=== PATIENT | male | born 1990 | race Caucasian/White ===

== ENCOUNTER 2020-02-06 13:14 | Emergency (ER) | payer OTHER ==
[2020-02-06 13:44] VITALS: BP 126/67
--- NOTE | 2020-02-06 14:00 | NUR ---
PT AMBULATORY TO E FROM TRIAGE WITH STEADY GAIT. NAD NOTED. RESP REGULAR AND UNLABORED. PT WEARING MASK FOR COUGH. STIVEN WOOD AT BEDSIDE FOR EVALUATION. ISOLATION PRECAUTIONS IN PLACE PER STIVEN WOOD. 29 Y/O M PRESENTS STATING "WHOLE FAMILY IS SICK, EVERYONE IS COUGHING AND HAVING RUNNY NOSES, CONGESTED." DENIES CP, SOB, N/V/D, FEVERS, CHILLS OR ANY RECENT TRAVEL. CALL LIGHT IN REACH. FALL PRECAUTIONS IN PLACE. SIDE RAILS UPX2.
--- NOTE | 2020-02-06 14:24 | NUR ---
STIVEN WOOD AT BEDSIDE FOR EVALUATION
== END 2020-02-06 15:11 | disposition home or self-care (01) ==
LOC: ED 15:05
DX: B34.9 Viral infection, unspecified (principal); F17.200 Nicotine dependence, unspecified, uncomplicated
CPT/HCPCS: 71046; 99283

== ENCOUNTER 2020-02-16 12:33 | Emergency (ER) | payer OTHER ==
[~2020-02-16] VITALS: Ht 175.3 cm; Wt 73.0 kg
--- NOTE | 2020-02-16 12:47 | NUR ---
pt ambulated to room with a steady gait. pt in with C/O possibly "severing tendon in my finger."
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
--- NOTE | 2020-02-16 13:32 | NUR ---
Provider at bedside.
--- NOTE | 2020-02-16 13:48 | NUR ---
Lab at bedside. radar technician at bedside cleaning wound. Sitter remains outside of room.
[2020-02-16 14:08] LABS: BASOPHILS # (AUTO) 0.03 x10^3/uL (0-0.1); BASOPHILS % (AUTO) 0 % (0-1); EOSINOPHILS % (AUTO) 2 % (1-7); LYMPHOCYTES # (AUTO) 3.03 x10^3/uL (1-3.4); LYMPHOCYTES % (AUTO) 46 % (22-44); MD NO; MEAN CORPUSCULAR HEMOGLOBIN 29.9 pg (27.5-34.5); MEAN CORPUSCULAR HGB CONC 33.5 g/dL (33.2-36.2); MEAN PLATELET VOLUME 7.2 fL (7.4-10.4); MONOCYTES # (AUTO) 0.58 x10^3/uL (0.2-0.8); MONOCYTES % (AUTO) 9 % (2-9); NEUTROPHILS % (AUTO) 44 % (42-75); PLATELET COUNT 354 x10^3/uL (130-400)
[2020-02-16 14:18] LABS: ALBUMIN 4.2 g/dL (3.4-5.0); ANION GAP 5 mmol/L (5-15); CALCIUM 8.8 mg/dL (8.5-10.1); CHLORIDE 109 mmol/L (98-107); CREATININE 0.91 mg/dL (0.7-1.3); SALICYLATE LEVEL 2.8 mg/dL (2.8-20.0)
--- NOTE | 2020-02-16 14:19 | NUR ---
Provider at bedside.
[2020-02-16] MEDS ORDERED: NEOSPORIN OINT. PKT 1 PACKET ONE (14:29)
--- NOTE | 2020-02-16 14:46 | NUR ---
Carolyne REGULATORY TECHNICIAN at bedside evulating pt.
--- NOTE | 2020-02-16 15:14 | NUR ---
MEAL TRAY PROVIDED TO PT. PT REQUESTING BENADRYL FOR RASH D/T TAPE/LAB DRAW
[2020-02-16] MEDS ORDERED: DIPHENHYDRAMINE 50 MG CAPSULE ONE (15:15)
--- NOTE | 2020-02-16 15:20 | NUR ---
Bendryl 50mg PO give per Emar. Medication not scanning. 5 rights verified.
--- NOTE | 2020-02-16 16:24 | NUR ---
Personal belongings returned to pt, 2 bags. pt currently getting dressed.
[2020-02-16 16:30] VITALS: BP 132/71
--- NOTE | 2020-02-16 16:31 | NUR ---
Patient given discharge instructions and they have confirmed that they understand the instructions. Patient ambulatory with steady gait. pt left ER in no distress
== END 2020-02-16 16:32 | disposition home or self-care (01) ==
LOC: ED 13:02
DX: F33.9 Major depressive disorder, recurrent, unspecified (principal); F14.10 Cocaine abuse, uncomplicated; F12.10 Cannabis abuse, uncomplicated; F10.10 Alcohol abuse, uncomplicated; F15.10 Other stimulant abuse, uncomplicated; Y90.0 Blood alcohol level of less than 20 mg/100 ml
CPT/HCPCS: 36415; 80048; 80307; 82040; 85025; 99284

== ENCOUNTER 2020-05-23 07:05 | Emergency (ER) | payer MEDICAID ==
[~2020-05-23] VITALS: Ht 175.3 cm; Wt 74.2 kg
--- NOTE | 2020-05-23 07:30 | NUR ---
THIS IS A 29 YO M W/ C/O "CAN'T FEEL MY LUNGS", SOB, CP SINCE IV METH USE LAST NIGHT. PT LUNG SOUNDS DIMINISHED ON LEFT SIDE. PT TACHYCARDIC, OTHER VS WDL. PT RESTING ON GURNEY W/ CALL LIGHT IN REACH AND SIDE RAILS UPX2. CONNECTED TO ALL MONITORING. AT BEDSIDE FOR ED EVAL.
--- NOTE | 2020-05-23 07:47 | NUR ---
PIV STARTED LABS DRAWN AND SENT TO LAB.
[2020-05-23 07:54] LABS: BASOPHILS % (AUTO) 0 % (0-1); EOSINOPHILS # (AUTO) 0.03 x10^3/uL (0-0.4); EOSINOPHILS % (AUTO) 0 % (1-7); LYMPHOCYTES # (AUTO) 0.58 x10^3/uL (1-3.4); LYMPHOCYTES % (AUTO) 5 % (22-44); MD NO; MEAN CORPUSCULAR HEMOGLOBIN 30.6 pg (27.5-34.5); MEAN CORPUSCULAR HGB CONC 33.9 g/dL (33.2-36.2); MEAN CORPUSCULAR VOLUME 90.3 fL (81-97); MEAN PLATELET VOLUME 6.9 fL (7.4-10.4); MONOCYTES # (AUTO) 0.02 x10^3/uL (0.2-0.8); MONOCYTES % (AUTO) 0 % (2-9); NEUTROPHILS % (AUTO) 94 % (42-75); PLATELET COUNT 279 x10^3/uL (130-400); RED BLOOD COUNT 5.22 x10^6/uL (4.38-5.82); RED CELL DISTRIBUTION WIDTH 13.5 % (9.4-14.8)
[2020-05-23] MEDS ORDERED: HYDROmorphone 1 MG/ML, 1ML INJ IM ONE (08:00)
[2020-05-23 08:04] LABS: ALBUMIN 4.4 g/dL (3.4-5.0); ANION GAP 7 mmol/L (5-15); CHLORIDE 107 mmol/L (98-107); CREATININE 1.07 mg/dL (0.7-1.3)
[2020-05-23 08:08] LABS: TROPONIN I < 0.015 ng/mL (0.000-0.045)
[2020-05-23] MEDS ORDERED: HYDROmorphone 1 MG/ML, 1ML INJ ONE (08:09)
--- NOTE | 2020-05-23 08:17 | NUR ---
TELEPHONE CALL TO RADIOLOGY REGARDING DELAY IN IMAGE. THEY STATE WHEN THE TECH GETS BACK FROM ED THEY WILL TELL HIM TO "RESEND IT".
--- NOTE | 2020-05-23 08:30 | NUR ---
CXR MARKED COMPLETE AT 0805. NO IMAGE OR REPORT POPULATING IN [facility]. PER HE HAS ALSO SPOKEN W/ RADIOLOGY 3 TIMES NOW. STILL NO IMAGE AVAILABLE.
[2020-05-23] MEDS ORDERED: OMNIPAQUE 350 MG/ML, 100ML BOTTLE ONE (09:30)
--- NOTE | 2020-05-23 10:11 | NUR ---
PT IN RAD.
[2020-05-23 10:46] VITALS: BP 111/44
--- NOTE | 2020-05-23 10:46 | NUR ---
PT SLEEPING ON [employer] W/ CALL LIGHT IN REACH. CONNECTED TO ALL MONITORING. VSS, NADN. CHEST RISE AND FALL OBSERVED. AWAITING RESULTS.
--- NOTE | 2020-05-23 10:59 | NUR ---
Patient/Caregiver given discharge instructions and they have confirmed that they understand the instructions. Patient ambulatory with steady gait.
== END 2020-05-23 11:01 | disposition home or self-care (01) ==
LOC: ED 07:43
DX: R07.89 Other chest pain (principal); R06.02 Shortness of breath; R00.0 Tachycardia, unspecified; R94.31 Abnormal electrocardiogram [ECG] [EKG]; F17.200 Nicotine dependence, unspecified, uncomplicated
CPT/HCPCS: 36415; 71045; 71275; 80048; 82040; 84484; 85025; 85379; 93005; 96372; 99285; J1170; Q9967

== ENCOUNTER 2020-10-22 20:46 | Emergency (ER) | payer MEDICAID ==
[2020-10-22 20:52] VITALS: BP 129/73
--- NOTE | 2020-10-22 20:57 | NUR ---
RAW SILK GRADER: EKG DONE IN TRIAGE.
[2020-10-22 21:48] LABS: BASOPHILS % (AUTO) 1 % (0-1); EOSINOPHILS % (AUTO) 4 % (1-7); LYMPHOCYTES % (AUTO) 42 % (22-44); MEAN CORPUSCULAR HEMOGLOBIN 29.1 pg (27.5-34.5); MEAN CORPUSCULAR HGB CONC 33.4 g/dL (33.2-36.2); MEAN PLATELET VOLUME 7.1 fL (7.4-10.4); MONOCYTES % (AUTO) 9 % (2-9); NEUTROPHILS % (AUTO) 44 % (42-75); PLATELET COUNT 350 x10^3/uL (130-400); RED BLOOD COUNT 4.87 x10^6/uL (4.38-5.82); RED CELL DISTRIBUTION WIDTH 13.2 % (9.4-14.8)
[2020-10-22 21:56] LABS: ALBUMIN 3.6 g/dL (3.4-5.0); ANION GAP 8 mmol/L (5-15); CALCIUM 8.3 mg/dL (8.5-10.1); CHLORIDE 110 mmol/L (98-107); CREATININE 0.93 mg/dL (0.7-1.3)
[2020-10-22 21:57] LABS: MD NO
--- NOTE | 2020-10-22 22:01 | NUR ---
pt to room from lobby
[2020-10-22] MEDS ORDERED: LORazepam 1MG TABLET ONE (22:27)
--- NOTE | 2020-10-22 22:29 | NUR ---
PT MEDICATED PER EMAR. 5 RIGHTS ADDRESSED
[2020-10-22] MEDS ORDERED: LORazepam 1MG TABLET PO ONE (22:30)
--- NOTE | 2020-10-22 22:50 | NUR ---
Patient/Caregiver given discharge instructions and they have confirmed that they understand the instructions. Patient ambulatory with steady gait.
== END 2020-10-22 22:51 | disposition home or self-care (01) ==
LOC: ED 22:08
DX: F41.1 Generalized anxiety disorder (principal); F15.20 Other stimulant dependence, uncomplicated; R20.8 Other disturbances of skin sensation; I48.92 Unspecified atrial flutter
CPT/HCPCS: 36415; 80048; 82040; 85025; 93005; 99284

== ENCOUNTER 2020-12-07 11:52 | Inpatient (IN) | payer MEDICAID ==
[~2020-12-07] VITALS: Ht 175.3 cm; Wt 86.5 kg
[2020-12-07 12:15] LABS: BASOPHILS % (AUTO) 1 % (0-1); EOSINOPHILS % (AUTO) 3 % (1-7); LYMPHOCYTES % (AUTO) 28 % (22-44); MEAN CORPUSCULAR HEMOGLOBIN 29.6 pg (27.5-34.5); MEAN CORPUSCULAR HGB CONC 33.5 g/dL (33.2-36.2); MONOCYTES % (AUTO) 10 % (2-9); NEUTROPHILS % (AUTO) 59 % (42-75); PLATELET COUNT 281 x10^3/uL (130-400); RED CELL DISTRIBUTION WIDTH 14.4 % (9.4-14.8)
--- NOTE | 2020-12-07 12:19 | NUR ---
PT. ARRIVES BY [facility] A & O X 4 WITH A GCS OF 15 WITH C/O A SUICIDE ATTEMPT BY TAKING 4 BOTTLES OF SERTRALINE, 2 BOTTLES OF WELLBUTRIN, 2 BOTTLES OF HYDROXYZINE AND 1 BOTTLE PRAZOSIN. PT. REPORTS HIS MOTHER WITNESSED HIS ATTEMPT AND CALL EMS. PT. STATES HE HAS A PREVIOUS ATTEMPT WITH A HEROIN OD. PT. STATES HE USES HEROIN, METH, WEED AND DRINKS FREQUENTLY IN ADDITION TO SMOKING. PT. STATES "EVERYTHING IS GOING WRONG IN MY LIFE" BUT DOESN'T ELABORATE ON THE DETAILS. PT. WAS PLACED ON THE CP MONITOR AND A 12 LEAD EKG WAS DONE. PT. HAS AN IV IN PLACE. THE PT. IS CALM AND COOPERATIVE. HE PLACED ALL OF HIS BELONGINGS IN A BAG WHICH WAS LABELED AND SECURED IN THE CABINET. PT.'S SI SAFETY MEASURES ARE IN PLACE AND A SITTER IS OUTSIDE OF THE ROOM. THE RESIDENT IS AT THE BEDSIDE. PT.'S LUNGS ARE CTA THROUGHOUT. S1 S2 WAS NOTED WITHOUT MURMURS RUBS OR GALLOPS. HIS ABD. IS SOFT AND HE C/O CHRONIC ABD. PAIN. BS ARE + X 4 QUADS. PULSES ARE + 2 THROUGHOUT AND CAP REFILL IS BRISK. PT. IS ABLE TO SHIRLEY WNL. HE IS AMBULATORY WITH A STEADY GAIT. HE HAS NO S/S MUSCLE RIGITY AT THIS TIME. SIDERAILS ARE UP X 2 AND THE HOB IS ELEVATED. HE WAS GIVEN BLANKETS FOR WARMTH.
[2020-12-07 12:22] LABS: MD NO
[2020-12-07 12:23] LABS: CHLORIDE 109 mmol/L (98-107)
--- NOTE | 2020-12-07 12:29 | NUR ---
LABS WERE DRAWN AND SENT.
[2020-12-07 12:41] LABS: ALANINE AMINOTRANSFERASE 29 U/L (12-78); ALBUMIN 3.4 g/dL (3.4-5.0); ALKALINE PHOSPHATASE 75 U/L (45-117); ANION GAP 6 mmol/L (5-15); BILIRUBIN,TOTAL 0.2 mg/dL (0.2-1.0); CALCIUM 8.7 mg/dL (8.5-10.1); CREATININE 0.85 mg/dL (0.7-1.3); TOTAL PROTEIN 6.4 g/dL (6.4-8.2)
[2020-12-07 12:42] LABS: SALICYLATE LEVEL < 1.7 mg/dL (2.8-20.0)
--- NOTE | 2020-12-07 12:54 | NUR ---
RONALDO SAUL AT THE BEDSIDE INTERVIEWING THE PT.
--- NOTE | 2020-12-07 13:03 | NUR ---
PT. REMAINS MONITORED WITH STABLE VSS. LEGAL 2000 ON THE PT.'S CHART.
--- NOTE | 2020-12-07 13:44 | NUR ---
PT. IS RESTING AT THIS TIME.
--- NOTE | 2020-12-07 14:37 | NUR ---
PT. REMAINS WITH 1 TO 1 MONITORING. SITTER IS OUTSIDE HIS ROOM. CP MONITOR IS IN PLACE AND THE PT. IS RESTING WITHOUT CONCERNS.
[2020-12-07] MEDS ORDERED: PRAZ2CAP2 PO (14:45)
[2020-12-07] MEDS ORDERED: SERT100T32 PO (14:45)
[2020-12-07] MEDS ORDERED: BUPR150T7 PO (14:45)
[2020-12-07] MEDS ORDERED: HYDR50TA99 PO (14:45)
--- NOTE | 2020-12-07 14:54 | NUR ---
SBAR HAND-OFF REPORT RECEIVED FROM NAREN JENNINGS. ASSUMING CARE OF PATIENT.
--- NOTE | 2020-12-07 16:03 | NUR ---
PT SLEEPING AND IS ON THE CARDIAC AND CONTINUOUS SPO2 MONITORS. VS STABLE.
--- NOTE | 2020-12-07 17:35 | NUR ---
MOTHER, LEANDRO, , WOULD LIKE TO BE UPDATED ON PATIENT'S PLAN OF CARE IF PATIENT AGREES.
[2020-12-07 17:38] LABS: ANION GAP 4 mmol/L (5-15); CALCIUM 8.5 mg/dL (8.5-10.1); CHLORIDE 110 mmol/L (98-107); CREATININE 0.75 mg/dL (0.7-1.3)
[2020-12-07 17:39] LABS: SALICYLATE LEVEL < 1.7 mg/dL (2.8-20.0)
--- NOTE | 2020-12-07 17:45 | NUR ---
VS UPDATED AND WNL. PT RESTING. SITTER AT BEDSIDE.
[2020-12-07] MEDS ORDERED: LORazepam 2 MG/ML, 1ML ONE ×2 (18:23→20:38)
[2020-12-07] MEDS ORDERED: LORazepam 2 MG/ML, 1ML IVPush ONE ×2 (18:30→21:00)
--- NOTE | 2020-12-07 18:30 | NUR ---
PT FOUND TO BE SEIZING BY ED RN, JACK. THIS RN PULLED AND ADMINISTERED 1 MG ATIVAN PER VERBAL ORDER BY ED MD THOMPSON. REMAINING 1 MG ATIVAN HANDED OVER TO PT'S PRIMARY RN, GLADIS.
--- NOTE | 2020-12-07 18:40 | NUR ---
PT HAD SEIZURE WITNESSED BY SITTERS. PT GIVEN 1MG ATIVAN IVP WITH RESOLUTION OF SEIZURE, ORDERED BY DR. THOMPSON, WHO EVALUATED PATIENT AT THE BEDSIDE. CALLED DR. SNELL, WHO IS ON HIS WAY IN AND NOTIFIED HIM. DR. SNELL TO SEE PATIENT UPON ARRIVAL. LEVEL OF CARE CHANGED TO CRITICAL CARE, PER TELEPHONE ORDER OF DR. SNELL. NOTIFIED DR. SNELL THAT PT'S BP HAS BEEN MARGINAL, 500ML BOLUS OF NS ORDERED.
--- NOTE | 2020-12-07 18:45 | NUR ---
PT MOVED FROM 4 T TRAUMA 3. IV BOLUS STARTED ORDERED. PT POSTICTAL AT THIS TIME, EYES CLOSED. SEIZURE PADS IN PLACE
[2020-12-07] MEDS ORDERED: SODIUM CHLORIDE 0.9%, 500ML IVBOLUS ONE (19:00)
--- NOTE | 2020-12-07 19:04 | NUR ---
ASSUMED CARE OF PATIENT. REPORT GIVEN FROM NAREN MEDELLIN. DR SNELL TO BEDSIDE. MD AWARE OF VS. PT DROWSY. PT IS ABLE TO ANSWER QUESTIONS. CARIDAC MONITOR ON. SINUS TACH NOTED. WILL CONTINUE TO MONITOR.
--- NOTE | 2020-12-07 19:15 | NUR ---
CALLED DR SNELL. PROVIDER AWARE OF VS.
--- NOTE | 2020-12-07 19:21 | NUR ---
SITTER AT BEDSIDE. ADDRESSING MACHINE OPERATOR ON. SINSU TACH NOTED. SEIZURE PRECAUTIONS IN PLACE. WILL CONTINUE TO MONITOR.
[2020-12-07] MEDS ORDERED: ONDANSETRON ODT 4 MG PO PRN (19:30)
[2020-12-07] MEDS ORDERED: morphine SULFATE 10 MG/ML, 1ML IVPush PRN (19:30)
[2020-12-07] MEDS ORDERED: LORazepam 2 MG/ML, 1ML IVPush PRN ×2 (19:30→23:30)
[2020-12-07] MEDS ORDERED: OXYcodone IR 5MG TABLET PO PRN (19:30)
[2020-12-07] MEDS ORDERED: SODIUM CHLORIDE 0.9% 1,000ML IVBOLUS ONE ×2 (19:30→20:00)
[2020-12-07] MEDS ORDERED: DOCUSATE 100 MG CAPSULE PO PRN (19:30)
[2020-12-07] MEDS ORDERED: PROMETHAZINE 25 MG/ML, 1ML IM PRN (19:30)
[2020-12-07] MEDS ORDERED: BISACODYL 10 MG SUPP PR PRN (19:30)
[2020-12-07] MEDS ORDERED: POLYETHYLENE GLYCOL 17 GM PACKET PO PRN (19:30)
[2020-12-07] MEDS ORDERED: hydrALAzine 20 MG/ML, 1ML IVPush PRN (19:30)
--- NOTE | 2020-12-07 19:32 | NUR ---
DR SNELL TO BEDSIDE. PROVIDER AWARE OF VS. MD WANTS 1000 ML BOLUS OF NS GIVEN A 3RD BOLUS. PT MORE ALERT BUT DROWSY. PT IS ABLE TO ANSWER QUESTIONS APPROPRIATELY. COLLEGE FOOTBALL COACH ON. SINUS TACH NOTED. WILL CONTINUE TO MONITOR.
[2020-12-07 19:44] LABS: ANION GAP 8 mmol/L (5-15); CALCIUM 8.3 mg/dL (8.5-10.1); CHLORIDE 111 mmol/L (98-107); CREATININE 0.87 mg/dL (0.7-1.3)
[2020-12-07 19:54] LABS: CREATINE KINASE, TOTAL 72 U/L (39-308); FREE T4 (FREE THYROXINE) 0.73 ng/dL (0.76-1.46)
[2020-12-07] MEDS ORDERED: NOREPINEPHRINE 8 MG in SODIUM CHLORIDE 0.9% 242 ML IV PRN (20:00)
--- NOTE | 2020-12-07 20:02 | NUR ---
DR THOMPSON AWARE OF VS.
--- NOTE | 2020-12-07 20:05 | NUR ---
DR SNELL CALLED. AWARE OF VS. WANTS LEVO STARTED. PT HAS VERBALLY CONSENTED TO CENTRAL LINE. PT IS TOO WEAK TO SIGN. DR THOMPSON TO PLACE CENTRAL. DR SNELL WANTS LEVO STARTED IN PERIPHERAL IV UNTIL CENTRAL LINE IS IN.
--- NOTE | 2020-12-07 20:40 | NUR ---
CENTERAL LINE DONE BY DR THOMPSON. PT STARTED HAVING A SEIZURE. DR MCKEON AT BEDSIDE. 1 MG OF ATIVAN GIVEN.
[2020-12-07] MEDS: LORazepam 2 MG/ML, 1ML IVPush PRN ×2 (20:41→22:46)
--- NOTE | 2020-12-07 20:45 | NUR ---
CENTRAL LINE OKAYED TO USE BY DR THOMPSON. XRAY DONE
[2020-12-07] MEDS: D5%-0.45NACL+KCL 20MEQ 1,000 ML IV SCH (20:48)
--- NOTE | 2020-12-07 21:05 | NUR ---
REPORT CALLED INTO [facility] RN
[2020-12-07] MEDS ORDERED: LEVETIRACETAM 1,000 MG in SODIUM CHLORIDE 0.9% 100 ML IV ONE (23:30)
[2020-12-08 00:21] LABS: MICROSCOPIC INDICATED
[2020-12-08 00:22] LABS: AMPHETAMINE SCREEN, URINE Positive (Negative); BARBITURATE SCREEN, URINE Negative (Negative); BENZODIAZEPINE SCREEN, URINE Positive (Negative); CANNABINOID SCREEN, URINE Positive (Negative); COCAINE SCREEN, URINE Negative (Negative); METHADONE SCREEN, URINE Negative (Negative); OPIATE SCREEN, URINE Negative (Negative)
[2020-12-08] MEDS ORDERED: SODIUM CHLORIDE 0.9% 1,000ML IVBOLUS ONE (00:30)
[2020-12-08] MEDS ORDERED: LORazepam 2 MG/ML, 1ML IVPush ONE (00:30)
[2020-12-08] MEDS ORDERED: LORazepam 2 MG/ML, 1ML IVPush PRN (01:00)
[2020-12-08] MEDS ORDERED: OMNIPAQUE 350 MG/ML, 100ML BOTTLE ONE (02:06)
[2020-12-08] MEDS: NOREPINEPHRINE 8 MG in SODIUM CHLORIDE 0.9% 242 ML IV PRN ×3 (03:17→16:56)
[2020-12-08] MEDS: D5%-0.45NACL+KCL 20MEQ 1,000 ML IV SCH (03:17)
[2020-12-08] MEDS: ONDANSETRON 2MG/ML, 2ML IVPush PRN (04:29)
[2020-12-08 05:27] LABS: CHLORIDE 114 mmol/L (98-107)
[2020-12-08 05:29] LABS: BASOPHILS % (AUTO) 0 % (0-1); EOSINOPHILS % (AUTO) 0 % (1-7); LYMPHOCYTES % (AUTO) 4 % (22-44); MEAN CORPUSCULAR HGB CONC 33.1 g/dL (33.2-36.2); MEAN PLATELET VOLUME 7.2 fL (7.4-10.4); MONOCYTES % (AUTO) 6 % (2-9); NEUTROPHILS % (AUTO) 89 % (42-75); PLATELET COUNT 244 x10^3/uL (130-400); RED BLOOD COUNT 4.13 x10^6/uL (4.38-5.82); RED CELL DISTRIBUTION WIDTH 14.1 % (9.4-14.8)
[2020-12-08 05:30] LABS: MD NO
[2020-12-08 05:37] LABS: ALANINE AMINOTRANSFERASE 28 U/L (12-78); ALBUMIN 3.1 g/dL (3.4-5.0); ALKALINE PHOSPHATASE 67 U/L (45-117); ANION GAP 4 mmol/L (5-15); BILIRUBIN,TOTAL 0.4 mg/dL (0.2-1.0); CALCIUM 7.4 mg/dL (8.5-10.1); CHOL/HDL RATIO 2.1; CHOLESTEROL, TOTAL 89 mg/dL (140-239); CREATININE 1.13 mg/dL (0.7-1.3); HDL CHOL % 48 % (26-37); HDL CHOLESTEROL (DIRECT) 43 mg/dL (40-60); LDL CHOLESTEROL,CALCULATED 20 mg/dL (54-169); LDL/HDL RATIO 0.5 (0.5-3.0); TOTAL PROTEIN 5.6 g/dL (6.4-8.2); TRIGLYCERIDES 131 mg/dL (50-200); VLDL CHOLESTEROL 26 mg/dL (0-25)
[2020-12-08] MEDS: LACTATED RINGERS 1,000 ML IV SCH ×3 (08:05→21:43)
[2020-12-08] MEDS: ENOXAPARIN 40 MG/0.4 ML SQ SCH (09:56)
[2020-12-08] MEDS: LEVETIRACETAM 500 MG in SODIUM CHLORIDE 0.9% 100 ML IV SCH ×2 (09:57→20:58)
[2020-12-08] MEDS: AMPICILLIN/SULBACTAM 3 GM in SODIUM CHLORIDE 0.9% 100 ML IV SCH ×3 (09:57→21:41)
[2020-12-09] MEDS: AMPICILLIN/SULBACTAM 3 GM in SODIUM CHLORIDE 0.9% 100 ML IV SCH ×4 (03:54→22:30)
[2020-12-09] MEDS: LACTATED RINGERS 1,000 ML IV SCH ×2 (03:55→10:00)
[2020-12-09] MEDS: LEVETIRACETAM 500 MG in SODIUM CHLORIDE 0.9% 100 ML IV SCH ×2 (09:19→22:04)
[2020-12-09] MEDS: ENOXAPARIN 40 MG/0.4 ML SQ SCH (09:19)
[2020-12-09 09:40] VITALS: BP 110/53
[2020-12-09 15:15] VITALS: BP 108/57
[2020-12-09 20:31] VITALS: BP 109/68
[2020-12-09] MEDS: ONDANSETRON 2MG/ML, 2ML IVPush PRN (23:22)
[2020-12-10 00:15] VITALS: BP 108/61
[2020-12-10 03:24] VITALS: BP 119/65
[2020-12-10] MEDS ORDERED: ACETAMINOPHEN 325 MG TABLET ONE (03:49)
[2020-12-10] MEDS: AMPICILLIN/SULBACTAM 3 GM in SODIUM CHLORIDE 0.9% 100 ML IV SCH ×4 (03:53→22:43)
[2020-12-10] MEDS ORDERED: ACETAMINOPHEN 325 MG TABLET PO ONE (04:00)
[2020-12-10] MEDS ORDERED: NICOTINE 14MG/24 HR PATCH.TD24 ONE (04:52)
[2020-12-10] MEDS ORDERED: NICOTINE 14MG/24 HR PATCH.TD24 TD SCH (05:00)
[2020-12-10 06:35] LABS: CALCIUM 8.4 mg/dL (8.5-10.1); CHLORIDE 105 mmol/L (98-107)
[2020-12-10 06:41] LABS: ALANINE AMINOTRANSFERASE 148 U/L (12-78); ALBUMIN 2.9 g/dL (3.4-5.0); ALKALINE PHOSPHATASE 80 U/L (45-117); ANION GAP 6 mmol/L (5-15); BILIRUBIN,TOTAL 0.7 mg/dL (0.2-1.0); CREATININE 0.75 mg/dL (0.7-1.3); TOTAL PROTEIN 6.3 g/dL (6.4-8.2)
[2020-12-10 06:47] LABS: BASOPHILS % (AUTO) 0 % (0-1); EOSINOPHILS % (AUTO) 0 % (1-7); LYMPHOCYTES % (AUTO) 9 % (22-44); MEAN CORPUSCULAR HEMOGLOBIN 29.1 pg (27.5-34.5); MEAN CORPUSCULAR HGB CONC 33.9 g/dL (33.2-36.2); MEAN PLATELET VOLUME 7.4 fL (7.4-10.4); MONOCYTES % (AUTO) 9 % (2-9); NEUTROPHILS % (AUTO) 82 % (42-75); PLATELET COUNT 217 x10^3/uL (130-400); RED BLOOD COUNT 4.29 x10^6/uL (4.38-5.82); RED CELL DISTRIBUTION WIDTH 13.9 % (9.4-14.8)
[2020-12-10 06:53] LABS: MD NO
[2020-12-10 07:06] VITALS: BP 116/65
[2020-12-10] MEDS: LEVETIRACETAM 500 MG in SODIUM CHLORIDE 0.9% 100 ML IV SCH ×2 (08:41→21:53)
[2020-12-10] MEDS: ENOXAPARIN 40 MG/0.4 ML SQ SCH (08:42)
[2020-12-10] MEDS: NICOTINE 21 MG/24 HR PATCH.TD24 TD SCH (09:01)
[2020-12-10] MEDS ORDERED: POTASSIUM CHLORIDE 20 MEQ TAB.ER.PRT PO ONE (12:00)
[2020-12-10 13:13] VITALS: BP 120/67
[2020-12-10] MEDS ORDERED: TRAZODONE 50MG TABLET PO PRN (15:00)
[2020-12-10 18:44] VITALS: BP 115/70
[2020-12-10] MEDS ORDERED: HALOPERIDOL 5 MG/ML IV ONE (21:30)
[2020-12-11] MEDS: AMPICILLIN/SULBACTAM 3 GM in SODIUM CHLORIDE 0.9% 100 ML IV SCH ×3 (04:02→16:00)
[2020-12-11 05:59] LABS: BASOPHILS % (AUTO) 0 % (0-1); EOSINOPHILS % (AUTO) 1 % (1-7); LYMPHOCYTES % (AUTO) 20 % (22-44); MD NO; MEAN CORPUSCULAR HEMOGLOBIN 29.5 pg (27.5-34.5); MEAN CORPUSCULAR HGB CONC 34.2 g/dL (33.2-36.2); MONOCYTES % (AUTO) 12 % (2-9); NEUTROPHILS % (AUTO) 66 % (42-75); PLATELET COUNT 260 x10^3/uL (130-400); RED BLOOD COUNT 4.45 x10^6/uL (4.38-5.82); RED CELL DISTRIBUTION WIDTH 13.6 % (9.4-14.8)
[2020-12-11 06:11] LABS: ALBUMIN 2.9 g/dL (3.4-5.0); ANION GAP 9 mmol/L (5-15); CALCIUM 8.6 mg/dL (8.5-10.1); CHLORIDE 106 mmol/L (98-107)
[2020-12-11 06:14] LABS: ALANINE AMINOTRANSFERASE 169 U/L (12-78); ALKALINE PHOSPHATASE 73 U/L (45-117); BILIRUBIN,TOTAL 0.6 mg/dL (0.2-1.0); CREATININE 0.74 mg/dL (0.7-1.3); TOTAL PROTEIN 6.6 g/dL (6.4-8.2)
[2020-12-11 07:41] VITALS: BP 127/69
[2020-12-11] MEDS ORDERED: LORazepam 2 MG/ML, 1ML IVPush PRN (08:30)
[2020-12-11] MEDS ORDERED: POTASSIUM PHOSPHATE 44 MEQ in SODIUM CHLORIDE 0.9% 500 ML IV ONE (09:00)
[2020-12-11] MEDS ORDERED: MAGNESIUM SULFATE PMX 2GM/50ML 50 ML IV ONE (09:00)
[2020-12-11] MEDS: NICOTINE 21 MG/24 HR PATCH.TD24 TD SCH (09:46)
[2020-12-11] MEDS: ENOXAPARIN 40 MG/0.4 ML SQ SCH (09:47)
[2020-12-11] MEDS ORDERED: GADOTERATE 10 MMOL/20 ML VIAL ONE (10:23)
[2020-12-11] MEDS: LEVETIRACETAM 500 MG in SODIUM CHLORIDE 0.9% 100 ML IV SCH (11:36)
[2020-12-11 12:36] VITALS: BP 96/59
[2020-12-11] MEDS ORDERED: NICO-587 TD (13:21)
[2020-12-11] MEDS ORDERED: ENOX40SY4 SQ (13:21)
[2020-12-11] MEDS ORDERED: DOCU-186 PO (13:21)
[2020-12-11] MEDS ORDERED: HYDR-826 PO (13:21)
[2020-12-11] MEDS ORDERED: TRAZ50TA66 PO (13:21)
[2020-12-11] MEDS ORDERED: LEVE500T53 PO ×2 (13:21→14:09)
[2020-12-11] MEDS ORDERED: BISA10SU4 PR (13:21)
[2020-12-11] MEDS ORDERED: AMOX1TAB64 PO (13:24)
== END 2020-12-11 18:10 | DRG 917 ==
LOC: ED 12:40 → SUATTDRO 15:26 → EDIP 15:43 → CSU 21:10 → 5SO 12-09 10:04
PROVIDERS: ADMIT Family Medicine; ATTEND Internal Medicine
PROC: 02HV33Z Insertion of Infusion Device into Superior Vena Cava, Percutaneous Approach (ICD-10-PCS; principal; 2020-12-07)
DX: T43.292A Poisoning by other antidepressants, intentional self-harm, initial encounter (principal); G92 Toxic encephalopathy; J69.0 Pneumonitis due to inhalation of food and vomit; R57.0 Cardiogenic shock; F33.2 Major depressive disorder, recurrent severe without psychotic features; Z20.822 Contact with and (suspected) exposure to COVID-19; T44.6X2A Poisoning by alpha-adrenoreceptor antagonists, intentional self-harm, initial encounter; T43.222A Poisoning by selective serotonin reuptake inhibitors, intentional self-harm, initial encounter; T43.592A Poisoning by other antipsychotics and neuroleptics, intentional self-harm, initial encounter; D64.9 Anemia, unspecified; D72.828 Other elevated white blood cell count; E83.39 Other disorders of phosphorus metabolism; E83.42 Hypomagnesemia; E86.0 Dehydration; E87.6 Hypokalemia; E88.09 Other disorders of plasma-protein metabolism, not elsewhere classified; F12.90 Cannabis use, unspecified, uncomplicated; F15.10 Other stimulant abuse, uncomplicated; F17.210 Nicotine dependence, cigarettes, uncomplicated; F22 Delusional disorders; F41.9 Anxiety disorder, unspecified; I10 Essential (primary) hypertension; M51.27 Other intervertebral disc displacement, lumbosacral region; R56.9 Unspecified convulsions; R94.31 Abnormal electrocardiogram [ECG] [EKG]; Z59.0 Homelessness; Z91.5 Personal history of self-harm; Y92.89 Other specified places as the place of occurrence of the external cause; Z79.899 Other long term (current) drug therapy; Z79.891 Long term (current) use of opiate analgesic; Z79.01 Long term (current) use of anticoagulants; Z91.030 Bee allergy status; Z88.8 Allergy status to other drugs, medicaments and biological substances
CPT/HCPCS: 36415; 87806; 96361; 96374; 96375; 99285; A9575; 70553; 71045; 74177; 80048; 80053; 80061; 80074; 80299; 80307; 80320; 80329; 81001; 82550; 82962; 83036; 83605; 83735; 84100; 84439; 84443; 85025; 87081; 87086; 87635; 93005; 93306; 95819; G0378; J0295; J1650; J1953; J2405; Q9967; G0475; G0480; J1630; J2060; J3475; J3480; J7030; J7040; J7050; J7120

== ENCOUNTER 2020-12-11 16:49 | Inpatient (IN) | payer MEDICAID ==
[~2020-12-11] VITALS: Ht 175.3 cm; Wt 75.8 kg
[~2020-12-11 16:49] MED LIST: AMOX1TAB64 PO; BISA10SU4 PR; BUPR150T7 PO; DOCU-186 PO; ENOX40SY4 SQ; HYDR-826 PO; HYDR50TA99 PO; LEVE500T53 PO; NICO-587 TD; PRAZ2CAP2 PO; SERT100T32 PO; TRAZ50TA66 PO
[2020-12-11] MEDS ORDERED: DOCUSATE 100 MG CAPSULE PO PRN (17:00)
[2020-12-11] MEDS ORDERED: BISACODYL 10 MG SUPP PR PRN (17:00)
[2020-12-11] MEDS ORDERED: ACETAMINOPHEN 325 MG TABLET PO PRN (17:00)
[2020-12-11] MEDS ORDERED: ONDANSETRON ODT 4 MG PO PRN (17:00)
[2020-12-11] MEDS ORDERED: POLYETHYLENE GLYCOL 17 GM PACKET PO PRN (17:00)
[2020-12-11 18:41] VITALS: BP 115/70
[2020-12-11 19:55] VITALS: BP 111/75
[2020-12-11] MEDS: AMOXICILLIN/CLAV 875-125MG TABLET PO SCH (20:35)
[2020-12-11] MEDS: LEVETIRACETAM 500 MG TABLET PO SCH (20:35)
[2020-12-12 07:39] VITALS: BP 96/53
[2020-12-12 08:18] LABS: FREE T4 (FREE THYROXINE) 0.86 ng/dL (0.76-1.46)
[2020-12-12] MEDS: LEVETIRACETAM 500 MG TABLET PO SCH ×2 (09:45→20:41)
[2020-12-12] MEDS: NICOTINE 21 MG/24 HR PATCH.TD24 TD SCH (09:45)
[2020-12-12] MEDS: QUETIAPINE 25MG TABLET PO PRN (09:45)
[2020-12-12] MEDS: AMOXICILLIN/CLAV 875-125MG TABLET PO SCH ×2 (09:45→20:39)
[2020-12-12] MEDS: ESCITALOPRAM 10MG TABLET PO SCH (13:06)
[2020-12-12 19:29] VITALS: BP 115/64
[2020-12-12] MEDS: TRAZODONE 50MG TABLET PO PRN (21:19)
[2020-12-13 07:00] LABS: BASOPHILS % (AUTO) 1 % (0-1); EOSINOPHILS % (AUTO) 4 % (1-7); LYMPHOCYTES % (AUTO) 25 % (22-44); MD NO; MEAN CORPUSCULAR HEMOGLOBIN 29.3 pg (27.5-34.5); MEAN CORPUSCULAR HGB CONC 33.9 g/dL (33.2-36.2); MEAN PLATELET VOLUME 6.8 fL (7.4-10.4); MONOCYTES % (AUTO) 11 % (2-9); NEUTROPHILS % (AUTO) 60 % (42-75); PLATELET COUNT 334 x10^3/uL (130-400); RED BLOOD COUNT 4.78 x10^6/uL (4.38-5.82); RED CELL DISTRIBUTION WIDTH 14.1 % (9.4-14.8)
[2020-12-13 07:14] LABS: ANION GAP 1 mmol/L (5-15); CALCIUM 8.8 mg/dL (8.5-10.1); CHLORIDE 104 mmol/L (98-107)
[2020-12-13 07:21] VITALS: BP 112/66
[2020-12-13] MEDS: AMOXICILLIN/CLAV 875-125MG TABLET PO SCH ×2 (08:57→20:16)
[2020-12-13] MEDS: LEVETIRACETAM 500 MG TABLET PO SCH ×2 (08:58→20:16)
[2020-12-13] MEDS: ESCITALOPRAM 10MG TABLET PO SCH (09:00)
[2020-12-13] MEDS: NICOTINE 21 MG/24 HR PATCH.TD24 TD SCH (10:19)
[2020-12-13 19:30] VITALS: BP 132/80
[2020-12-13] MEDS: TRAZODONE 50MG TABLET PO PRN (20:16)
[2020-12-13] MEDS: QUETIAPINE 25MG TABLET PO PRN (20:16)
[2020-12-13] MEDS: PRAZOSIN 2 MG CAPSULE PO SCH (20:16)
[2020-12-14 07:10] VITALS: BP 110/65
[2020-12-14] MEDS: AMOXICILLIN/CLAV 875-125MG TABLET PO SCH ×2 (08:30→20:21)
[2020-12-14] MEDS: ESCITALOPRAM 10MG TABLET PO SCH (08:30)
[2020-12-14] MEDS: NICOTINE 21 MG/24 HR PATCH.TD24 TD SCH (08:30)
[2020-12-14] MEDS: LEVETIRACETAM 500 MG TABLET PO SCH (08:31)
[2020-12-14 19:12] VITALS: BP 110/78
[2020-12-14] MEDS: PRAZOSIN 2 MG CAPSULE PO SCH (20:21)
[2020-12-14] MEDS ORDERED: QUETIAPINE 100MG TABLET PO SCH (21:00)
[2020-12-15 07:25] VITALS: BP 115/70
[2020-12-15] MEDS: NICOTINE 21 MG/24 HR PATCH.TD24 TD SCH (09:12)
[2020-12-15] MEDS: ESCITALOPRAM 10MG TABLET PO SCH (09:12)
[2020-12-15] MEDS: AMOXICILLIN/CLAV 875-125MG TABLET PO SCH ×2 (09:12→20:42)
[2020-12-15 19:28] VITALS: BP 132/54
[2020-12-15] MEDS: PRAZOSIN 2 MG CAPSULE PO SCH (20:42)
[2020-12-15] MEDS: DOXEPIN 25 MG CAPSULE PO SCH (20:42)
[2020-12-15] MEDS: QUETIAPINE 100MG TABLET PO SCH (20:43)
[2020-12-16 07:05] VITALS: BP 135/70
[2020-12-16] MEDS: ESCITALOPRAM 10MG TABLET PO SCH (08:16)
[2020-12-16] MEDS: AMOXICILLIN/CLAV 875-125MG TABLET PO SCH ×2 (08:16→20:02)
[2020-12-16] MEDS: NICOTINE 21 MG/24 HR PATCH.TD24 TD SCH (08:17)
[2020-12-16] MEDS ORDERED: QUET100T PO (11:39)
[2020-12-16] MEDS ORDERED: AMOX1TAB12 PO (11:39)
[2020-12-16] MEDS ORDERED: DOXE25CA PO (11:39)
[2020-12-16] MEDS ORDERED: NICO-587 TD (11:39)
[2020-12-16] MEDS ORDERED: PRAZ2CAP2 PO (11:39)
[2020-12-16] MEDS ORDERED: ESCI10TA5 PO (11:39)
[2020-12-16 19:39] VITALS: BP 118/71
[2020-12-16] MEDS: PRAZOSIN 2 MG CAPSULE PO SCH (20:02)
[2020-12-16] MEDS: DOXEPIN 25 MG CAPSULE PO SCH (20:03)
[2020-12-16] MEDS: QUETIAPINE 100MG TABLET PO SCH (20:03)
[2020-12-17 07:48] VITALS: BP 114/74
[2020-12-17] MEDS: AMOXICILLIN/CLAV 875-125MG TABLET PO SCH (09:17)
[2020-12-17] MEDS: NICOTINE 21 MG/24 HR PATCH.TD24 TD SCH (09:17)
[2020-12-17] MEDS: ESCITALOPRAM 10MG TABLET PO SCH (09:17)
== END 2020-12-17 11:00 | disposition home or self-care (01) | DRG 885 ==
LOC: 3E 18:18
PROVIDERS: ADMIT Psychiatry & Neurology Psychosomatic Medicine; ATTEND Psychiatry & Neurology Psychosomatic Medicine
DX: F33.3 Major depressive disorder, recurrent, severe with psychotic symptoms (principal); J69.0 Pneumonitis due to inhalation of food and vomit; F11.20 Opioid dependence, uncomplicated; F15.20 Other stimulant dependence, uncomplicated; E83.39 Other disorders of phosphorus metabolism; F43.10 Post-traumatic stress disorder, unspecified; E83.42 Hypomagnesemia; E87.6 Hypokalemia; F12.90 Cannabis use, unspecified, uncomplicated; F17.210 Nicotine dependence, cigarettes, uncomplicated; G47.00 Insomnia, unspecified; Z88.8 Allergy status to other drugs, medicaments and biological substances; Z91.030 Bee allergy status; Z79.899 Other long term (current) drug therapy; Z56.0 Unemployment, unspecified; Z91.5 Personal history of self-harm
CPT/HCPCS: 36415; 80048; 83735; 84100; 84439; 84443; 85025; Q0162

== ENCOUNTER 2021-07-20 10:41 | Emergency (ER) | payer MEDICAID ==
[~2021-07-20] VITALS: Ht 175.3 cm; Wt 92.2 kg
[~2021-07-20 10:41] MED LIST changes: +AMOX1TAB12 PO; +BUPR150T22 PO; -BUPR150T7 PO; +DOCU-181 PO; -DOCU-186 PO; +DOXE25CA PO; +ESCI10TA97 PO; +QUET100T2 PO
[2021-07-20 11:03] VITALS: BP 109/65
[2021-07-20] MEDS ORDERED: DEXAMETHASONE 4 MG/ML, 1ML PO ONE (12:00)
[2021-07-20] MEDS ORDERED: DEXAMETHASONE 4 MG/ML, 1ML ONE (12:05)
== END 2021-07-20 12:58 | disposition home or self-care (01) ==
LOC: ED 12:51
DX: U07.1 COVID-19 (principal); B34.9 Viral infection, unspecified; F17.200 Nicotine dependence, unspecified, uncomplicated; R00.0 Tachycardia, unspecified; R13.10 Dysphagia, unspecified
CPT/HCPCS: 71045; 93005; 99285; J1100; U0003; U0005